=== PATIENT | male | born 1940 | race Caucasian/White ===

== ENCOUNTER 2017-09-16 10:12 | Day surgery (SDC) | payer OTHER ==
[~2017-09-16] VITALS: Ht 177.8 cm; Wt 90.9 kg
[~2017-09-16 10:12] MED LIST: AMLO5TAB2 PO; ASPI-496 PO; DOCU-131 PO; ENAL10TA PO; ERGO500017 PO; FIBER CAPSULES PO; FLUO20CA19 PO; FURO20TA3 PO; GABA300C10 PO; GABA600T2 PO; GUAI400T6 PO; HYDR-3341 PO; IBUP-1222 PO; IRON15TA3 PO; LACT1TAB3 PO; LISI-170 PO; MELO7.5T31 PO; METH750T2 PO; METO25TA91 PO; METO50TA82 PO; MIRT15TA4 PO; MIRT15TA6 PO; MIRT30TA4 PO; NAPROXEN PO; OXYC1TAB PO; OXYC5TAB3 PO; TIZA4TAB PO; TIZA6CAP PO; UBID100C41 PO; WHEA236P PO; [UNRECOGNIZED DRUG - REMARK] PO
[2017-09-16] MEDS ORDERED: LACTATED RINGERS 1,000 ML IV SCH (10:36)
[2017-09-16 10:57] VITALS: BP 135/71
[2017-09-16] MEDS ORDERED: ONDANSETRON 2MG/ML, 2ML ONE (11:32)
[2017-09-16] MEDS ORDERED: FENTANYL PF 250 MCG/5ML ONE (11:32)
[2017-09-16] MEDS ORDERED: PROPOFOL 10 MG/ML, 20ML ONE (11:32)
[2017-09-16] MEDS ORDERED: CEFAZOLIN 1,000 MG ONE (11:32)
[2017-09-16] MEDS ORDERED: GLYCOPYRROLATE 0.2MG/1ML, 5ML ONE (11:32)
[2017-09-16] MEDS ORDERED: DEXAMETHASONE 4 MG/ML, 1ML ONE (11:32)
[2017-09-16] MEDS ORDERED: ROCURONIUM 10 MG/ML,10ML ONE (11:32)
[2017-09-16] MEDS ORDERED: NEOSTIGMINE 1 MG/ML, 10ML ONE (11:32)
[2017-09-16] MEDS ORDERED: SUCCINYLCHOLINE 20 MG/ML, 10ML ONE (11:32)
[2017-09-16] MEDS ORDERED: PROPOFOL 50 ML ONE (12:20)
[2017-09-16] MEDS ORDERED: PHENYLEPHRINE 10 MG/ML ONE (12:47)
[2017-09-16] MEDS ORDERED: LABETALOL 5MG/ML, 20ML ONE (14:35)
[2017-09-16] MEDS: LABETALOL 5MG/ML, 20ML IV PRN ×3 (14:40→14:55)
[2017-09-16] MEDS ORDERED: HYDROmorphone 1 MG/ML, 1ML IV PRN (15:00)
[2017-09-16] MEDS ORDERED: FENTANYL PF 100 MCG/2ML IV PRN (15:00)
[2017-09-16] MEDS ORDERED: hydrALAzine 20 MG/ML, 1ML IV PRN (15:00)
[2017-09-16] MEDS ORDERED: OXYcodone 5 MG/5 ML ORAL.SOL UDC PO PRN (15:00)
[2017-09-16] MEDS ORDERED: ONDANSETRON 2MG/ML, 2ML IVPush PRN (15:00)
[2017-09-16] MEDS ORDERED: ACETAMINOPHEN 325 MG TABLET PO PRN (15:00)
[2017-09-16] MEDS ORDERED: HYDROcodone/APAP 7.5-325MG/15ML UDC PO PRN (15:00)
== END 2017-09-16 16:20 | disposition home or self-care (01) ==
LOC: OUT 10:12
PROVIDERS: ATTEND Internal Medicine
DX: K80.50 Calculus of bile duct without cholangitis or cholecystitis without obstruction (principal); I50.9 Heart failure, unspecified; J44.9 Chronic obstructive pulmonary disease, unspecified; Z88.6 Allergy status to analgesic agent; Z88.5 Allergy status to narcotic agent; Z88.0 Allergy status to penicillin
CPT/HCPCS: 43264; 43275; 74328; 82962; J0330; J0690; J1100; J2370; J2405; J2704; J2710; J3010; J7120; J3490; C1769

== ENCOUNTER → 2018-04-14 | Outpatient (CLI) | payer OTHER | END | disposition home or self-care (01) | LOC: CVU 11:25 | PROVIDERS: ATTEND Family Medicine | DX: I70.203 Unspecified atherosclerosis of native arteries of extremities, bilateral legs (principal); M79.89 Other specified soft tissue disorders; E11.9 Type 2 diabetes mellitus without complications; E78.5 Hyperlipidemia, unspecified; Z85.820 Personal history of malignant melanoma of skin | CPT/HCPCS: 93922 ==